=== PATIENT | female | born 1965 | race Caucasian/White ===

== ENCOUNTER 2018-05-06 17:46 | Emergency (ER) | payer SELFPAY ==
--- NOTE | 2018-05-06 19:04 | RADIOLOGY REPORT ---
EXAMINATION: XR ELBOW, RIGHT CLINICAL INFORMATION: Fall with elbow pain COMPARISON: None TECHNIQUE: AP, lateral, and oblique views of the right elbow. FINDINGS: The bones and soft tissues are normal. No fracture or joint effusion. Alignment is anatomic. Joint spaces are maintained. IMPRESSION: Normal right elbow.
--- NOTE | 2018-05-06 19:08 | RADIOLOGY REPORT ---
EXAMINATION: XR WRIST, RIGHT CLINICAL INFORMATION: Wrist pain after fall COMPARISON: None TECHNIQUE: PA, lateral, and oblique views of the right wrist. FINDINGS: The bones and soft tissues are normal. No fracture. Alignment is anatomic with normal joint spaces. No erosions or abnormal soft tissue calcifications. IMPRESSION: Normal right wrist.
--- NOTE | 2018-05-06 19:27 | RADIOLOGY REPORT ---
EXAMINATION: XR SHOULDER, RIGHT CLINICAL INFORMATION: Fall with shoulder pain. COMPARISON: None TECHNIQUE: 3 views of the right shoulder. FINDINGS: There is an anteroinferior dislocation of the right shoulder. On one view, a tiny linear bony density is seen behind the humerus which could represent a tiny fracture. This can be reassessed after relocation. No other abnormality is detected. IMPRESSION: Anteroinferior dislocation of right shoulder. Question of tiny associated posterior humeral fracture.
--- NOTE | 2018-05-06 20:08 | ED GENERAL ADULT ---
History of Present Illness General Chief Complaint: Fall Stated Complaint: HURT R SHOULDER S/P MECHANICAL FALL 1HR AGO NO LOC Source: family Exam Limitations: language barrier Vital Signs & Intake/Output Vital Signs & Intake/Output Vital Signs Date Time Temp Pulse Resp B/P B/P Pulse O2 O2 Flow FiO2 Mean Ox Delivery Rate 05/06 2230 74 18 126/70 97 Room Air 05/06 2215 78 18 145/76 97 Room Air 05/060 70 18 134/68 97 Room Air 05/060 74 18 142/78 96 Room Air 05/06 2120 76 20 144/80 97 Nasal 4.0L Cannula 05/06 2105 98.0 78 18 149/80 97 Room Air 05/06 1751 97.9 80 18 158/101 99 Room Air Allergies Coded Allergies: No Known Allergies (05/06/18) Reconcile Medications Doxycycline Hyclate 100 MG TABLET 1 TAB PO BID PNA Ondansetron (Zofran Odt) 4 MG TAB.RAPDIS 1 TAB SL TID PRN nausea Triage Note: 52 YEAR OLD FEMALE TO ER WITH COMPLAINTS OF R SHOULDER AND UPPER ARM PAIN AFTER SHE SLIPPED AND FELL. Triage Nurses Notes Reviewed? yes Onset: Abrupt Duration: hour(s): Timing: single episode today HPI: 52-year-old female with no known past medical history presenting with right shoulder pain status post mechanical fall approximately 2 hours ago. Patient is been speaking and presents with her family member who translates and helps to provide history. Reports that the patient was in the bathroom and the floor was wet, patient slipped on the water and struck her left shoulder on the tile floor. Denies head strike or LOC. Denies numbness or paresthesias. (Raine Torres) Past History Travel History Traveled to [place] past 21 day No Medical History Any Pertinent Medical History? 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 No (Raine Torres) Review of Systems Review of Systems Constitutional: Reports: no symptoms. EENTM: Reports: no symptoms. Respiratory: Reports: no symptoms. Cardiovascular: Reports: no symptoms. GI: Reports: no symptoms. Genitourinary: Reports: no symptoms. Musculoskeletal: Reports: see HPI. Skin: Reports: no symptoms. Neurological/Psychological: Reports: no symptoms. Hematologic/Endocrine: Reports: no symptoms. Immunologic/Allergic: Reports: no symptoms. All Other Systems: Reviewed and Negative (Raine Torres) Physical Exam Physical Exam General Appearance: well developed/nourished, no apparent distress, alert, awake , comfortable Head: atraumatic, normal appearance Eyes: Bilateral: normal appearance. Neck: normal inspection Respiratory: normal breath sounds, lungs clear Cardiovascular: regular rate/rhythm Gastrointestinal: soft, non-tender Back: normal inspection Extremities: On exam of the right shoulder. There is no abrasions, ecchymosis, edema. Diffuse tenderness to palpation. Patient is unable to range the shoulder, unable to assess motor strength. Sensation intact. Distal pulses 2+. Neurologic/Psych: awake, alert, oriented x 3, normal mood/affect Skin: intact, normal color, warm/dry Core Measures ACS in differential dx? No CVA/TIA Diagnosis: No Sepsis Present: No Sepsis Focused Exam Completed? No (Raine Torres) Progress Differential Diagnoses I considered the following diagnoses in my evaluation of the patient: [Shoulder contusion versus fracture versus dislocation] Plan of Care: Current Medications Sig/Cachorro Start time Last Medication Dose Stop Time Status Admin Doxycycline Hyclate 100 MG ONCE ONE 05/06 2345 UNVr (Vibramycin) 05/06 234 Initial x-ray IMPRESSION: Anteroinferior dislocation of right shoulder. Question of tiny associated posterior humeral fracture. Shoulder was reduced under conscious sedation using etomidate and fentanyl. Placed in a sling Postreduction x-ray IMPRESSION: Interval reduction of previously seen right shoulder dislocation. No definite fracture seen. The previously suspected small posterior avulsion fracture is not redemonstrated on the views obtained. The patient had 2-3 episodes of post sedation emesis. After Zofran and Reglan she was able to tolerate po in the emergency department with no recurrent vomiting. CXR IMPRESSION: Limited study. Loss of the left hemidiaphragm medially suggests left lower lobe consolidation, possibly atelectasis or aspiration. Will cover empirically for aspiration pneumonia with doxycycline. Counseled on supportive care and strict return precautions. Will follow-up with her PMD and orthopedics Initial ED EKG: none (Raine Torres) Departure Departure Disposition: HOME OR SELF CARE Condition: Stable Clinical Impression Primary Impression: Dislocation of right shoulder joint Secondary Impressions: Aspiration pneumonia Referrals: Chuck Lopez MD Patient Has No Primary Care Dr (PCP/Family) Additional Instructions: Take doxycycline as prescribed. Use Zofran as needed for nausea. Follow-up with your primary care provider in orthopedics for reevaluation. Return to the emergency department for any new or worsening symptoms. Departure Forms: Customer Survey General Discharge Information Prescriptions: Current Visit Scripts Doxycycline Hyclate 1 TAB PO BID #20 TAB Ondansetron (Zofran Odt) 1 TAB SL TID PRN nausea #10 TAB (Raine Torres) Departure Comments I have seen and personally examined the patient and I agree the PAs evaluation. 52-year-old female presents to the emergency department for dislocated right shoulder. No other injuries. Procedure Under moderate sedation the shoulder was reduced. This was done under my direct supervision. A timeout was called. The patient was monitored throughout the procedure. She tolerated the procedure well. She did have a single episode of vomiting after the procedure, at that time she was awake. The family was instructed that should she develop fever or any difficulty breathing to return to the emergency department. She was put in a splint. They will follow up with orthopedics. (Nathan Bales DO) Procedures Joint Reduction Joint Reduction Site: shoulder (R) Conscious Sedation: conscious sedation, performed by me Reduction Attempts: 2 Pre-Procedure NV Exam: Yes Post-Procedure NV Exam: Yes Post Joint Reduction Film: joint reduced Progress: placed in sling (Raine Torres) Critical Care Note Critical Care Note Critical Care Time: non-applicable (Raine Torres)
[2018-05-06 22:30] VITALS: BP 126/70
--- NOTE | 2018-05-06 22:55 | RADIOLOGY REPORT ---
EXAMINATION: XR SHOULDER, RIGHT CLINICAL INFORMATION: Post reduction COMPARISON: 05/06/2008 TECHNIQUE: AP internal rotation and scapular Y views of the right shoulder. FINDINGS: Previously seen dislocation has been reduced. The humeral head is now normally positioned with respect to the glenoid. No definite fracture seen. Visualized right lung and ribs are normal. IMPRESSION: Interval reduction of previously seen right shoulder dislocation. No definite fracture seen. The previously suspected small posterior avulsion fracture is not redemonstrated on the views obtained.
--- NOTE | 2018-05-06 23:20 | RADIOLOGY REPORT ---
EXAMINATION: XR PORTABLE CHEST CLINICAL INFORMATION: Post sedation vomiting. Aspiration COMPARISON: None TECHNIQUE: Portable frontal view of the chest was obtained. FINDINGS: The patient is rotated. The film is underpenetrated. There is asymmetric elevation of the left hemidiaphragm. There is an eventration of the right hemidiaphragm. The aorta is tortuous. The cardiomediastinal silhouette is enlarged. There are superimposed soft tissues overlying the left lung base. There is loss of the left hemidiaphragm medially suggesting left lower lobe consolidation. No pleural effusion or pneumothorax. Normal pulmonary vascularity. IMPRESSION: Limited study. Loss of the left hemidiaphragm medially suggests left lower lobe consolidation, possibly atelectasis or aspiration.
[2018-05-06] MEDS ORDERED: DOXYCYCLINE HY100 M4 PO (23:44)
[2018-05-06] MEDS ORDERED: ZOFRAN ODT4 M1 SL (23:44)
== END 2018-05-06 23:51 ==
LOC: ERH 17:46
DX: S43.004A Unspecified dislocation of right shoulder joint, initial encounter (principal); J69.0 Pneumonitis due to inhalation of food and vomit; W01.0XXA Fall on same level from slipping, tripping and stumbling without subsequent striking against object, initial encounter; Y92.9 Unspecified place or not applicable; Y93.9 Activity, unspecified
CPT/HCPCS: 71045; 73030-RT; 73080-RT; 73110-RT; 96374; 96375; J2405; J2765